=== PATIENT | male | born 1970 | race Caucasian/White ===

== ENCOUNTER → 2021-09-14 09:30 | Outpatient (BNVA) | payer OTHER, SELFPAY | PROVIDERS: PCP Nurse Practitioner Family; Visit Provider Nurse Practitioner Family | DX: I10 Essential (primary) hypertension (principal); E66.9 Obesity, unspecified | CPT/HCPCS: 80053; 81003; 83036; 83540; 84436; 84443; 84481 ==

== ENCOUNTER 2021-11-08 11:21 | Outpatient (CLI) | payer OTHER, SELFPAY ==
--- NOTE | 2021-11-08 11:34 | XR_ITS ---
WS: [id number], AP view, 11/08/2021 Clinical Data: HEMATURIA Comparison: None. Findings: No abnormal intraabdominal masses or calcifications are seen. There is no dilatated small bowel or ev idence of obstruction. There is a moderate amount of fecal material throughout the ascending and transverse colons. There is sclerosis of the left acetabulum with cyst formation and slight deformity of the left femoral head. XR/XR KUB [id number] Impression: Fecal material in the ascending colon and transverse colon.
== END 2021-11-08 11:22 | disposition home or self-care (01) ==
LOC: RAD 11:29
PROVIDERS: PCP Nurse Practitioner Family; Visit Provider Nurse Practitioner Family
DX: R31.9 Hematuria, unspecified (principal); I10 Essential (primary) hypertension
CPT/HCPCS: 74018; 80053

== ENCOUNTER → 2022-02-21 09:51 | Outpatient (BNVA) | payer OTHER, SELFPAY | PROVIDERS: PCP Nurse Practitioner Family; Visit Provider Nurse Practitioner Family | DX: N02.9 Recurrent and persistent hematuria with unspecified morphologic changes (principal); R53.83 Other fatigue; I10 Essential (primary) hypertension; Z13.1 Encounter for screening for diabetes mellitus; Z83.49 Family history of other endocrine, nutritional and metabolic diseases; Z12.11 Encounter for screening for malignant neoplasm of colon; G47.30 Sleep apnea, unspecified; F17.209 Nicotine dependence, unspecified, with unspecified nicotine-induced disorders; E07.9 Disorder of thyroid, unspecified; E66.01 Morbid (severe) obesity due to excess calories | CPT/HCPCS: 80053; 84439; 84443; 84481; 85025; 86376 ==

== ENCOUNTER → 2022-04-26 14:27 | Outpatient (BNVA) | payer OTHER, SELFPAY | PROVIDERS: PCP Nurse Practitioner Family; Visit Provider Nurse Practitioner Family | DX: E03.9 Hypothyroidism, unspecified (principal); I10 Essential (primary) hypertension; N02.9 Recurrent and persistent hematuria with unspecified morphologic changes; E07.9 Disorder of thyroid, unspecified; R53.83 Other fatigue; R63.5 Abnormal weight gain | CPT/HCPCS: 80053; 81003; 84443 ==

== ENCOUNTER → 2022-07-18 10:11 | Outpatient (BNVA) | payer OTHER, SELFPAY | PROVIDERS: Visit Provider Family Medicine | DX: E03.9 Hypothyroidism, unspecified (principal); E66.9 Obesity, unspecified; G47.30 Sleep apnea, unspecified; I10 Essential (primary) hypertension; N02.9 Recurrent and persistent hematuria with unspecified morphologic changes | CPT/HCPCS: 80053; 80061; 82043; 83036; 84153; 84439; 84443; 85025 ==

== ENCOUNTER → 2023-10-16 12:43 | Outpatient (BNVA) | payer OTHER, SELFPAY | PROVIDERS: PCP Family Medicine; Visit Provider Family Medicine | DX: I10 Essential (primary) hypertension (principal); R53.83 Other fatigue; E66.01 Morbid (severe) obesity due to excess calories; Z12.5 Encounter for screening for malignant neoplasm of prostate | CPT/HCPCS: 80053; 83036; 84439; 84443; 85027; G0103 ==

== ENCOUNTER → 2025-06-08 13:44 | Outpatient (BNVA) | payer SELFPAY | PROVIDERS: PCP Family Medicine; Visit Provider Family Medicine | DX: Z13.6 Encounter for screening for cardiovascular disorders (principal) | CPT/HCPCS: 80053; 80061; 83036; 84439; 84443; 85025 ==